=== PATIENT | female | born 1970 | race African-American/Black ===

== ENCOUNTER 2018-12-28 21:09 | Emergency (ER) | payer OTHER ==
[~2018-12-28] VITALS: Ht 165.1 cm; Wt 122.5 kg
[~2018-12-28 21:09] MED LIST: ACET5SOL PO; FLUT1DIS3 IH
[2018-12-28] MEDS ORDERED: FAMOTIDINE 20 MG/2 ML VIAL IVP ONE (21:30)
[2018-12-28] MEDS ORDERED: diphenhydrAMINE 50 MG/ML VIAL IV ONE (21:30)
[2018-12-28] MEDS ORDERED: methylPREDNISolone SOD SUCC PF 125 MG/2 ML VIAL. IV ONE (21:30)
[2018-12-28] MEDS ORDERED: IV NORMAL SALINE 1000ML BAG 1,000 ML IV SCH (21:30)
[2018-12-28 21:39] LABS: BASO % 1 % (0-3); EOS # 0.1 x10^3/uL (0.0-0.7); EOS % 1 % (0-3); HEMATOCRIT 42.3 % (36.0-47.0); HEMOGLOBIN 14.1 g/dL (12.0-15.5); LYMPH % 35 % (24-48); MEAN CORPUSCULAR HEMOGLOBIN 31 pg (25-35); MEAN CORPUSCULAR HGB CONC 33 g/dL (31-37); MEAN CORPUSCULAR VOLUME 92 fL (79-100); MONO # 0.3 x10^3/uL (0.0-1.1); MONO % 4 % (0-9); NEUT % 60 % (31-73); PLATELET COUNT 321 x10^3/uL (140-400); RED BLOOD COUNT 4.57 x10^6/uL (3.50-5.40); RED CELL DISTRIBUTION WIDTH 13.9 % (11.5-14.5); WHITE BLOOD COUNT 8.4 x10^3/uL (4.0-11.0)
[2018-12-28 21:48] LABS: CALCIUM 8.8 mg/dL (8.5-10.1); CREATININE 1.2 mg/dL (0.6-1.0); GFR 57.5; POTASSIUM 3.9 mmol/L (3.5-5.1)
[2018-12-28 21:54] LABS: ALBUMIN 3.5 g/dL (3.4-5.0); ALBUMIN/GLOBULIN RATIO 0.7 (1.0-1.7); TOTAL BILIRUBIN 0.4 mg/dL (0.2-1.0); TOTAL PROTEIN 8.2 g/dL (6.4-8.2)
[2018-12-28] MEDS ORDERED: ONDANSETRON PF 4 MG/2 ML VIAL. ONE (22:00)
[2018-12-28] MEDS ORDERED: ONDANSETRON PF 4 MG/2 ML VIAL. IV ONE (22:15)
[2018-12-28 23:21] VITALS: BP 156/91
--- NOTE | 2018-12-29 00:01 | PHYS DOC ---
Past Medical History Past Medical History: Anxiety, Asthma, Hypertension Past Surgical History: Appendectomy, Tubal ligation, Other Additional Past Surgical Histo: Carpal tunnel left Alcohol Use: None Drug Use: None Adult General Chief Complaint Chief Complaint: ALLERGIC REACTION HPI HPI Patient is a 48-year-old female who presents with a complaint acute allergic reaction shortly after eating crab. She denies any history of shellfish allergy. She states that she broke out in hives and noticed swelling around her lips and her tongue that started within about 20 minutes of eating shellfish. She denies any chest pain or shortness of breath. She does admit to feeling a little bit anxious. Review of Systems Review of Systems Constitutional: Denies fever or chills [] HENT: Denies nasal congestion or sore throat [] Respiratory: Denies cough or shortness of breath [] Cardiovascular: No additional information not addressed in HPI [] Integument: Positive rash and pruritus[] All other systems were reviewed and found to be within normal limits, except as documented in this note. Current Medications Current Medications Current Medications Medications (Trade) Dose Ordered Sig/Barbara Start Time Stop Time Status Last Admin Dose Admin Diphenhydramine HCl (Benadryl) 50 mg 1X ONCE 12/28/18 21:30 12/28/18 21:31 DC 12/28/18 21:52 50 MG Famotidine (Pepcid Vial) 20 mg 1X ONCE 12/28/18 21:30 12/28/18 21:31 DC 12/28/18 21:52 20 MG Methylprednisolone Sodium Succinate (SOLU-Medrol 125MG VIAL) 125 mg 1X ONCE 12/28/18 21:30 12/28/18 21:31 DC 12/28/18 21:51 125 MG Ondansetron HCl (Zofran) 8 mg 1X ONCE 12/28/18 22:15 12/28/18 22:16 DC 12/28/18 22:15 8 MG Sodium Chloride 1,000 ml @ 250 mls/hr Q4H 12/28/18 21:30 12/29/18 00:14 DC 12/28/18 21:52 250 MLS/HR Allergies Allergies Allergies Coded Allergies Type Severity Reaction Last Updated Verified Penicillins Allergy Severe THROAT SWELLING 10/18/13 Yes Physical Exam Physical Exam Constitutional: Well developed, well nourished, no acute distress, non-toxic appearance. [] HENT: Normocephalic, atraumatic, bilateral external ears normal, oropharynx moist, no oral exudates, nose normal. There is swelling of upper and lower lips. No obvious tongue swelling is noted on exam. [] Eyes: PERRLA, EOMI, conjunctiva normal, no discharge. [] Neck: Normal range of motion, no tenderness, supple, no stridor. [] Cardiovascular: Regular rate and rhythm[] Lungs & Thorax: Bilateral breath sounds clear to auscultation [] Abdomen: Bowel sounds normal, soft. [] Skin: Diffuse urticarial rash is noted. [] Extremities: No tenderness, no cyanosis, no clubbing, ROM intact, no edema. [] Neurologic: Alert and oriented X 3, no focal deficits noted. [] Current Patient Data Vital Signs Vital Signs Date Time Temp Pulse Resp B/P (MAP) Pulse Ox O2 Delivery O2 Flow Rate FiO2 12/28/18 23:21 100 18 156/91 (112) 100 12/28/18 21:15 98.3 Room Air 98.3 Lab Values Laboratory Tests Test 12/28/18 21:34 White Blood Count 8.4 x10^3/uL (4.0-11.0) Red Blood Count 4.57 x10^6/uL (3.50-5.40) Hemoglobin 14.1 g/dL (12.0-15.5) Hematocrit 42.3 % (36.0-47.0) Mean Corpuscular Volume 92 fL (79-100) Mean Corpuscular Hemoglobin 31 pg (25-35) Mean Corpuscular Hemoglobin Concent 33 g/dL (31-37) Red Cell Distribution Width 13.9 % (11.5-14.5) Platelet Count 321 x10^3/uL (140-400) Neutrophils (%) (Auto) 60 % (31-73) Lymphocytes (%) (Auto) 35 % (24-48) Monocytes (%) (Auto) 4 % (0-9) Eosinophils (%) (Auto) 1 % (0-3) Basophils (%) (Auto) 1 % (0-3) Neutrophils # (Auto) 5.0 x10^3uL (1.8-7.7) Lymphocytes # (Auto) 3.0 x10^3/uL (1.0-4.8) Monocytes # (Auto) 0.3 x10^3/uL (0.0-1.1) Eosinophils # (Auto) 0.1 x10^3/uL (0.0-0.7) Basophils # (Auto) 0.0 x10^3/uL (0.0-0.2) Sodium Level 137 mmol/L (136-145) Potassium Level 3.9 mmol/L (3.5-5.1) Chloride Level 100 mmol/L (98-107) Carbon Dioxide Level 24 mmol/L (21-32) Anion Gap 13 (6-14) Blood Urea Nitrogen 9 mg/dL (7-20) Creatinine 1.2 mg/dL (0.6-1.0) H Estimated GFR (Cockcroft-Gault) 57.5 BUN/Creatinine Ratio 8 (6-20) Glucose Level 124 mg/dL (70-99) H Calcium Level 8.8 mg/dL (8.5-10.1) Total Bilirubin 0.4 mg/dL (0.2-1.0) Aspartate Amino Transferase (AST) 100 U/L (15-37) H Alanine Aminotransferase (ALT) 51 U/L (14-59) Alkaline Phosphatase 117 U/L (46-116) H Total Protein 8.2 g/dL (6.4-8.2) Albumin 3.5 g/dL (3.4-5.0) Albumin/Globulin Ratio 0.7 (1.0-1.7) L Laboratory Tests 12/28/18 21:34 Laboratory Tests 12/28/18 21:34 EKG EKG [] Radiology/Procedures Radiology/Procedures [] Course & Med Decision Making Course & Med Decision Making Pertinent Labs and Imaging studies reviewed. (See chart for details) [] Dragon Disclaimer Dragon Disclaimer This electronic medical record was generated, in whole or in part, using a voice recognition dictation system. Departure Departure Impression: Primary Impression: Acute allergic reaction Disposition: HOME, SELF-CARE Condition: STABLE Referrals: UNKNOWN PCP NAME (PCP) Patient Instructions: Food Allergy, Hives Problem Qualifiers Primary Impression: Acute allergic reaction Encounter type: initial encounter Qualified Codes: T78.40XA - Allergy, unspecified, initial encounter SHERITA DE LA TORRE Jr., DO Dec 29, 2018 00:01
== END 2018-12-29 00:14 | disposition home or self-care (01) ==
LOC: ER 21:09
DX: T78.1XXA Other adverse food reactions, not elsewhere classified, initial encounter (principal); L50.8 Other urticaria; J45.909 Unspecified asthma, uncomplicated; I10 Essential (primary) hypertension; Z88.0 Allergy status to penicillin; X58.XXXA Exposure to other specified factors, initial encounter
CPT/HCPCS: 36415; 80053; 85025; 96374; 96375; 99284; J1200; J2405; J2930; J3490; J7030

== ENCOUNTER 2019-09-24 10:09 | Emergency (ER) | payer OTHER ==
[~2019-09-24] VITALS: Ht 165.1 cm; Wt 112.0 kg
[2019-09-24 10:29] VITALS: BP 173/92
[2019-09-24] MEDS ORDERED: DEXAMETHASONE 4 MG TABLET PO ONE (10:30)
--- NOTE | 2019-09-24 10:51 | PHYS DOC ---
Past Medical History Past Medical History: Anxiety, Asthma, Hypertension Past Surgical History: Appendectomy, Tubal ligation, Other Additional Past Surgical Histo: Carpal tunnel left Additional Information: Nonsmoker Alcohol Use: None Drug Use: None Adult General Chief Complaint Chief Complaint: OTHER COMPLAINTS HPI HPI Patient is a 49 y/o female with a history of degenerative disc disease, osteoarthritis, and hypertension presents to the ED with cough and chest wall pain for the past 6 days. Pt was diagnosed with pneumonia 6 days ago and discharged with prednisone and Levaquin. Patient reports associated muscle aches and swelling of legs at night. She also complains of back pain that radiates down her leg with numbness and tingling. Denies known sick contacts. Denies trauma. Review of Systems Review of Systems Constitutional: Denies fever or chills; reports generalized malaise Eyes: Denies redness or eye pain HENT: Denies nasal congestion or sore throat Respiratory: Reports cough Cardiovascular: Denies chest pain or palpitations, Reports swelling of legs at night GI: Denies abdominal pain, nausea, or vomiting : Denies dysuria or hematuria Musculoskeletal: Reports chest wall pain, body aches, and back pain Integument: Denies rash or skin lesions Neurologic: Reports numbness and tingling down the leg Complete systems were reviewed and found to be within normal limits, except as documented in this note. Current Medications Current Medications Current Medications Medications (Trade) Dose Ordered Sig/Barbara Start Time Stop Time Status Last Admin Dose Admin Dexamethasone (Decadron) 10 mg 1X ONCE 09/24/19 10:30 09/24/19 10:31 DC 09/24/19 10:46 10 MG Allergies Allergies Allergies Coded Allergies Type Severity Reaction Last Updated Verified Penicillins Allergy Severe THROAT SWELLING 10/18/13 Yes Physical Exam Physical Exam Constitutional: Well developed, well nourished, no acute distress, non-toxic appearance HENT: Normocephalic, atraumatic, oropharynx moist Eyes: PERRL, EOMI, conjunctiva normal, no discharge Neck: Normal range of motion, no tenderness, supple, no meningeal signs Cardiovascular: Heart rate normal, regular rhythm Lungs & Thorax: Bilateral breath sounds clear to auscultation, no wheezing Abdomen: Soft, no tenderness Skin: Warm, dry, no erythema, no rash Back: No tenderness, no CVA tenderness Extremities: No tenderness, ROM intact, no edema appreciated bilaterally, no calf tenderness Neurologic: Alert and oriented X 3, normal motor function, normal sensory function, no focal deficits noted Psychologic: Affect normal, judgement normal Current Patient Data Vital Signs Vital Signs Date Time Temp Pulse Resp B/P (MAP) Pulse Ox O2 Delivery O2 Flow Rate FiO2 09/24/19 10:29 98.0 97 16 173/92 (119) 95 Room Air 98.0 EKG EKG [] Radiology/Procedures Radiology/Procedures PROCEDURE: CHEST PA & LATERAL EXAM: CHEST 2 VIEWS. HISTORY: Cough. COMPARISON: 01/04/2016. FINDINGS: Frontal and lateral views of the chest are obtained. A density posterior to the heart shadow on the lateral projection corresponds with vertebral spurring and appears to be stable chronically. There are no confluent infiltrates. There is no pneumothorax or pleural effusion. The heart is not enlarged. IMPRESSION: 1. No confluent infiltrates. Electronically signed by: Michelle Cunha MD (09/24/2019 10:55 AM) [facility] Course & Med Decision Making Course & Med Decision Making Patient is a 49 y/o female with a history of HTN, who presents to the ED with cough and chest pain. She was diagnosed clinically with pneumonia 6 days ago. Pt also complains of body aches and leg swelling at night. CXR without acute process. Likely bronchitis. No clinical signs of PE. Patient given dexamethasone in department. Will discharge with [facility]. Patient stable for discharge with outpatient follow-up with PCP. Discussed findings and plan with patient, who acknowledges understanding and agreement. Dragon Disclaimer Dragon Disclaimer This electronic medical record was generated, in whole or in part, using a voice recognition dictation system. Departure Departure Impression: Primary Impression: Viral syndrome Additional Impression: Bronchitis Disposition: HOME, SELF-CARE Condition: STABLE Referrals: UNKNOWN PCP NAME (PCP) Patient Instructions: Viral Syndrome Additional Instructions: Compression socks to reduce swelling Scripts Codeine Phosphate/Guaifenesin (Guaifen-Codeine 200-20 mg/10Ml) 10 Ml Liquid 10 ML PO Q6HRS PRN for COUGH, #200 ML Prov: ALEXANDRU COLON DO 09/24/19 Problem Qualifiers ALEXANDRU COLON DO Sep 24, 2019 10:51
--- NOTE | 2019-09-24 10:58 | RAD ---
EXAM: CHEST 2 VIEWS. HISTORY: Cough. COMPARISON: 01/04/2016. FINDINGS: Frontal and lateral views of the chest are obtained. A density posterior to the heart shadow on the lateral projection corresponds with vertebral spurring and appears to be stable chronically. There are no confluent infiltrates. There is no pneumothorax or pleural effusion. The heart is not enlarged. IMPRESSION: 1. No confluent infiltrates. Electronically signed by: Michelle Cunha MD (09/24/2019 10:55 AM) [facility]
[2019-09-24] MEDS ORDERED: CODE10LI PO (11:12)
== END 2019-09-24 11:18 | disposition home or self-care (01) ==
LOC: ER 10:09
DX: J45.909 Unspecified asthma, uncomplicated (principal); B34.9 Viral infection, unspecified; I10 Essential (primary) hypertension; Z88.0 Allergy status to penicillin
CPT/HCPCS: 71046; 99284; J8540